=== PATIENT | female | born 1995 | race Caucasian/White ===

== ENCOUNTER 2025-03-23 00:40 | Inpatient (IN) | payer OTHER, SELFPAY ==
[2025-03-23 00:48] VITALS: BMI 30.2
[2025-03-23 01:06] VITALS: BP 129/83
[2025-03-23 01:35] LABS: % Basophils 0.6 % (0-2); % Eosinophils 0.5 % (0-6); % Lymphocytes 11.2 % (20.5-51.1); % Neutrophils 79.7 % (42.2-75.2); Absolute Basophils 0.1 10^3/uL (0-0.2); Absolute Eosinophils 0.1 10^3/uL (0-0.7); Absolute Immature Granulocytes 0.2 10^3/uL (0-0.05); Absolute Monocytes 1.3 10^3/uL (0.1-0.6); Absolute Neutrophils 14.4 10^3/uL (1.4-6.5); Hematocrit 38.3 % (37.0-47.0); Hemoglobin 13.2 g/dL (12.0-16.0); Mean Corp Hgb Conc. 34.5 g/dL (33.0-37.0); Mean Corpuscular Hgb 30.1 pg (27.0-31.0); Mean Corpuscular Volume 87.2 fL (81.0-99.0); Mean Platelet Volume 11.7 fL (7.4-10.4); Nucleated Red Blood Cells % 0 %; Platelet Count 197 10^3/uL (130-400); Red Blood Cell Count 4.39 10^6/uL (4.20-5.40); Red Cell Dist. Width 12.9 % (11.5-14.5)
[2025-03-23] MEDS: LR 1000 IV ×2 (01:36→15:00)
[2025-03-23] MEDS: SUBLIMAZE 100 MCG EPIDURAL (12:29)
[2025-03-23] MEDS: FENTANYL/BUPIVACAINE 100 EPIDURAL ×2 (12:35→20:46)
[2025-03-23] MEDS: PITOCIN 30 UNITS/NSS 500 ML IV (16:15)
[2025-03-23] MEDS: ZOFRAN 4 MG IV (22:18)
[2025-03-24] MEDS: LR 1000 IV (00:05)
[2025-03-24] MEDS: PITOCIN 30 UNITS/NSS 500 ML IV (00:44)
[2025-03-24] MEDS: MOTRIN 600 MG PO ×3 (03:21→23:30)
[2025-03-24] MEDS: SENOKOT-S 1 TABLET PO (07:40)
[2025-03-24] MEDS: PRENATAL PLUS 1 TABLET PO (07:40)
[2025-03-25 05:24] LABS: Hematocrit 30.9 % (37.0-47.0); Hemoglobin 10.7 g/dL (12.0-16.0)
[2025-03-25] MEDS: MOTRIN 600 MG PO ×2 (07:41→15:38)
[2025-03-25] MEDS: PRENATAL PLUS 1 TABLET PO (07:41)
[2025-03-25] MEDS: SENOKOT-S 1 TABLET PO (07:42)
[2025-03-25 14:23] LABS: Syphilis/T. pallidum Ab Reflex Negative (Negative)
[2025-03-26] MEDS: MOTRIN 600 MG PO ×2 (00:17→08:07)
[2025-03-26] MEDS: M-M-R II 0.5 ML SC (07:58)
[2025-03-26] MEDS: PRENATAL PLUS 1 TABLET PO (07:59)
[2025-03-26] MEDS: SENOKOT-S 1 TABLET PO (07:59)
== END 2025-03-26 11:55 | disposition home or self-care (01) | DRG 807 ==
LOC: LDRP 00:40
PROVIDERS: Student in an Organized Health Care Education/Training Program; ADMITTING PHYSICIAN Obstetrics & Gynecology
PROC: 10E0XZZ Delivery of Products of Conception, External Approach (ICD-10-PCS; 2025-03-24)
PROC: 3E0134Z Introduction of Serum, Toxoid and Vaccine into Subcutaneous Tissue, Percutaneous Approach (ICD-10-PCS; 2025-03-26)
DX: O77.0 Labor and delivery complicated by meconium in amniotic fluid (principal); Z37.0 Single live birth; Z3A.39 39 weeks gestation of pregnancy; O76 Abnormality in fetal heart rate and rhythm complicating labor and delivery; Z23 Encounter for immunization
CPT/HCPCS: 36415; 85014; 85018; 85025; 86780; 86850; 86900; 86901; 90707